=== PATIENT | male | born 1965 | race Caucasian/White ===

== ENCOUNTER 2016-05-10 08:30 | Outpatient (CLI) | payer OTHER | END 2016-05-10 08:31 | disposition home or self-care (01) | DX: G47.33 Obstructive sleep apnea (adult) (pediatric) (principal) ==

== ENCOUNTER 2016-08-23 22:48 | Outpatient (CLI) | payer OTHER | END 2016-08-23 22:49 | disposition home or self-care (01) | DX: G47.33 Obstructive sleep apnea (adult) (pediatric) (principal); Z68.33 Body mass index [BMI] 33.0-33.9, adult ==

== ENCOUNTER 2016-09-06 09:54 | Outpatient (CLI) | payer OTHER | END 2016-09-06 09:55 | disposition home or self-care (01) | DX: G47.33 Obstructive sleep apnea (adult) (pediatric) (principal) ==

== ENCOUNTER 2017-06-18 14:14 | Emergency (ER) | payer BC, OTHER ==
[2017-06-18 14:28] VITALS: BP 135/98
--- NOTE | 2017-06-18 14:40 | XRAY Report ---
EXAM: CHEST RADIOGRAPHY EXAM DATE: 06/18/2017 02:32 PM. CLINICAL HISTORY: Cough. COMPARISON: 09/18/2011. TECHNIQUE: 2 views. FINDINGS: Lungs/Pleura: No focal opacities evident. No pleural effusion. No pneumothorax. Normal volumes. Mediastinum: Heart and mediastinal contours are unremarkable. Other: None. IMPRESSION: No acute cardiopulmonary abnormality. No evidence of pneumonia. [facility] Referring Provider Line: [phone] SITE ID: [id number]
[2017-06-18] MEDS ORDERED: guaiFENesin/DEXTROMETHORPHAN 10 ML UDC PO STA (16:19)
[2017-06-18] MEDS ORDERED: ACETAMINOPHEN 325 MG TABLET PO STA (16:19)
[2017-06-18] MEDS ORDERED: BENZONATATE 100 MG CAPSULE PO STA (16:19)
--- NOTE | 2017-06-18 16:33 | ED Physician Documentation ---
History of Present Illness - Stated complaint Stated Complaint: COUGH - Chief complaint Chief Complaint: Resp - Additonal information Additional information: hx from pt 52 m chills myalgias fatigue productive cough for a week or so after travel to [place] got a flu shot this year Review of Systems Constitutional: reports: Chills, Myalgias, Fatigue. denies: Fever Nose: reports: Congestion Cardiac: reports: Chest pain / pressure (with cough) Respiratory: reports: Cough GI: denies: Abdominal Pain, Nausea, Vomiting, Diarrhea Endocrine: denies: Easy bruising / bleeding Immunocompromised: denies: Immunocompromised PD PAST MEDICAL HISTORY - Past Medical History Past Medical History: Yes Respiratory: Pneumonia Endocrine/Autoimmune: HyPOthyroidism - Past Surgical History Past Surgical History: Yes Ortho: Other HEENT: Tonsil/Adenoidectomy - Present Medications Home Medications: Ambulatory Orders Medication Instructions Recorded Confirmed Azithromycin [Zithromax] 250 mg PO DAILY #6 tablet 06/18/17 Benzonatate [Tessalon] 100 mg PO TID PRN #20 capsule 06/18/17 Fluticasone [Flonase] 1 sprays SUNI BID PRN #1 bottle 06/18/17 guaiFENesin/DEXTROMETHORPHAN 10 ml PO Q6H PRN #120 ml 06/18/17 [Robitussin Dm] - Allergies Allergies/Adverse Reactions: Allergies Allergy/AdvReac Type Severity Reaction Status Date / Time No Known Drug Allergies Allergy Verified 06/18/17 14:28 - Social History Does the pt smoke?: No Smoking Status: Never smoker Does the pt drink ETOH?: No Does the pt have substance abuse?: No - Immunizations Immunizations are current?: No Immunizations: No immun - POLST Patient has POLST: No PD ED PE NORMAL - Vitals Vital signs reviewed: Yes - General General: Other (looks miserable and ill) - HEENT HEENT: Atraumatic - Neck Neck: Supple, no meningeal sign - Cardiac Cardiac: RRR - Respiratory Respiratory: No respiratory distress, Other (ronchi L > R) - Derm Derm: Normal color - Extremities Extremities: No deformity - Neuro Neuro: Alert and oriented X 3 Results - Vitals Vitals: Vital Signs - 24 hr 06/18/17 14:20 Temperature 36.6 C Heart Rate 98 Respiratory 20 Rate Blood Pressure 135/98 H O2 Saturation 98 Oxygen O2 Source Room air - Labs Labs: Laboratory Tests 06/18/17 16:18 Influenza A (Rapid) Negative Influenza B (Rapid) Negative Influenza Types A,B Ag - - Rads (name of study) CXR Radiology: See rad report (no acute) Departure - Departure Disposition: 01 Home, Self Care Clinical Impression: Pneumonia Qualifiers: Pneumonia type: due to unspecified organism Laterality: left Lung location: unspecified part of lung Qualified Code(s): J18.9 - Pneumonia, unspecified organism Condition: Good Instructions: ED Pneumonia Adult Follow-Up: Alonso Ross MD [Primary Care Provider] - Prescriptions: Azithromycin [Zithromax] 250 mg PO DAILY #6 tablet Benzonatate [Tessalon] 100 mg PO TID PRN #20 capsule PRN Reason: to ease cough Fluticasone [Flonase] 1 sprays SUNI BID PRN #1 bottle PRN Reason: congestion guaiFENesin/DEXTROMETHORPHAN [Robitussin Dm] 10 ml PO Q6H PRN #120 ml PRN Reason: Cough Comments: The influenza swabs were negative The xray did not show pneumonia but on exam it certinly sounds like you have pneumonia in your left lung and sometimes the xray findings can lag behind the clinical findings So I recommend treating you for pneumonia anyway Forms: Activity restrictions
== END 2017-06-18 17:43 | disposition home or self-care (01) ==
LOC: ED 14:14
DX: J18.9 Pneumonia, unspecified organism (principal)
CPT/HCPCS: 71046; 87275; 87276; 99283; 99284; A9270

== ENCOUNTER 2017-10-09 04:21 | Emergency (ER) | payer BC ==
--- NOTE | 2017-10-09 04:41 | ED Physician Documentation ---
PD HPI CHEST PAIN - Stated complaint Stated Complaint: CHEST PAIN - Chief complaint Chief Complaint: Cardiac - History obtained from History obtained from: Patient - History of Present Illness Timing - onset: Enter time (00:30), Today Timing - onset during: Sleep Timing - details: Abrupt onset, Intermittant Pain level max: 6 Pain level now: 2 Quality: Pain Location: Substernal, Left chest Radiation: Other (does not radiate) Improved by: Nothing Worsened by: Palpation Associated symptoms: No: Shortness of air, Diaphoresis, Nausea, Vomiting, Feeling faint / dizzy, General Weakness, Palpitations, Cough Similar symptoms before: Has not had sx before Recently seen: Not recently seen - Additional information Additional information: awoken from sleep by left chest pain, approximately 12:30 AM, waxing and waning. denies h/o similar symptoms Review of Systems Cardiac: reports: Chest pain / pressure. denies: Palpitations, Pedal edema, Calf pain Respiratory: denies: Dyspnea, Cough GI: denies: Abdominal Pain, Nausea, Vomiting PD PAST MEDICAL HISTORY - Past Medical History Respiratory: Pneumonia Endocrine/Autoimmune: HyPOthyroidism - Past Surgical History Past Surgical History: Yes Ortho: Other HEENT: Tonsil/Adenoidectomy - Present Medications Home Medications: Ambulatory Orders Medication Instructions Recorded Confirmed Azithromycin [Zithromax] 250 mg PO DAILY #6 tablet 06/18/17 Benzonatate [Tessalon] 100 mg PO TID PRN #20 capsule 06/18/17 Fluticasone [Flonase] 1 sprays SUNI BID PRN #1 bottle 06/18/17 guaiFENesin/DEXTROMETHORPHAN 10 ml PO Q6H PRN #120 ml 06/18/17 [Robitussin Dm] Omeprazole [PriLOSEC] 20 mg PO DAILY #14 capsule 10/09/17 - Allergies Allergies/Adverse Reactions: Allergies Allergy/AdvReac Type Severity Reaction Status Date / Time No Known Drug Allergies Allergy Verified 10/09/17 04:31 - Social History Does the pt smoke?: Yes Smoking Status: Light tobacco smoker Does the pt drink ETOH?: No Does the pt have substance abuse?: No - Immunizations Immunizations are current?: No Immunizations: No immun - POLST Patient has POLST: No PD ED PE NORMAL - Vitals Vital signs reviewed: Yes - General General: Alert and oriented X 3, No acute distress, Well developed/nourished - HEENT HEENT: Moist mucous membranes - Cardiac Cardiac: RRR, No murmur, No gallop, No rub - Respiratory Respiratory: No respiratory distress, Clear bilaterally - Abdomen Abdomen: Soft, Non tender - Extremities Extremities: No edema Results - Vitals Vitals: Vital Signs - 24 hr 10/09/17 10/09/17 10/09/17 04:29 05:10 06:03 Temperature 36.1 C L Heart Rate 70 67 71 Respiratory 16 16 16 Rate Blood Pressure 155/100 H 151/100 H O2 Saturation 97 96 98 10/09/17 06:53 Temperature Heart Rate 70 Respiratory 16 Rate Blood Pressure 143/67 H O2 Saturation 95 Oxygen O2 Source Room air - EKG (time done) No standard instances Rate: Rate (enter#) (69) Rhythm: NSR [place]: Normal Intervals: Normal OK QRS: Normal Ischemia: Normal ST segments Computer interpretation: Disagree with computer (no ST elevation) - Labs Labs: Laboratory Tests 10/09/17 10/09/17 10/09/17 04:37 04:37 04:37 WBC 5.7 RBC 4.61 L Hgb 14.4 Hct 43.1 MCV 93.3 MCH 31.1 H MCHC 33.4 RDW 14.0 Plt Count 229 MPV 8.2 Neut # (Auto) 2.6 Lymph # (Auto) 2.2 [place] # (Auto) 0.7 Eos # (Auto) 0.1 Baso # (Auto) 0.1 Absolute Nucleated RBC 0.00 Nucleated RBC % 0.1 Sodium 140 Potassium 4.2 Chloride 107 Carbon Dioxide 26 Anion Gap 7.0 BUN 20 Creatinine 1.0 Estimated GFR (MDRD) 78 L Glucose 93 Calcium 9.0 Total Bilirubin 0.5 AST 29 ALT 43 Alkaline Phosphatase 56 Troponin I < 0.04 Total Protein 7.2 Albumin 3.8 Globulin 3.4 Albumin/Globulin Ratio 1.1 Lipase 33 - Rads (name of study) chest xray Radiology: Prelim report reviewed, See rad report PD MEDICAL DECISION MAKING - ED course Complexity details: reviewed results, re-evaluated patient, considered differential, d/w patient - Sepsis Event Vital Signs: Vital Signs - 24 hr 10/09/17 10/09/17 10/09/17 04:29 05:10 06:03 Temperature 36.1 C L Heart Rate 70 67 71 Respiratory 16 16 16 Rate Blood Pressure 155/100 H 151/100 H O2 Saturation 97 96 98 10/09/17 06:53 Temperature Heart Rate 70 Respiratory 16 Rate Blood Pressure 143/67 H O2 Saturation 95 Oxygen O2 Source Room air Departure - Departure Disposition: 01 Home, Self Care Clinical Impression: Chest pain Condition: Good Instructions: ED Chest Pain Atypical Unkn Cause Follow-Up: Alonso Ross MD [Primary Care Provider] - Prescriptions: Omeprazole [PriLOSEC] 20 mg PO DAILY #14 capsule Discharge Date/Time: 10/09/17 06:53
[2017-10-09 04:50] LABS: BASOPHILS # (AUTO) 0.1 10^3/uL (0.0-0.1); EOSINOPHILS # (AUTO) 0.1 10^3/uL (0.0-0.7); EOSINOPHILS % (AUTO) 2.5 %; HGB - HEMOGLOBIN 14.4 g/dL (14.0-18.0); LYMPHOCYTES # (AUTO) 2.2 10^3/uL (1.5-3.5); LYMPHOCYTES % (AUTO) 38.3 %; MEAN CORPUSCULAR HEMOGLOBIN 31.1 pg (27.0-31.0); MEAN CORPUSCULAR HGB CONC 33.4 g/dL (32.0-36.0); MEAN CORPUSCULAR VOLUME 93.3 fL (80.0-94.0); MEAN PLATELET VOLUME 8.2 fL (7.4-11.4); MONOCYTES # (AUTO) 0.7 10^3/uL (0.0-1.0); MONOCYTES % (AUTO) 11.9 %; NEUTROPHILS # (AUTO) 2.6 10^3/uL (1.5-6.6); NEUTROPHILS % (AUTO) 46.3 %; PLT - PLATELET COUNT 229 10^3/uL (130-450); RED BLOOD COUNT 4.61 10^6/uL (4.70-6.10); WHITE BLOOD COUNT 5.7 x10^3/uL (4.8-10.8)
[2017-10-09 04:56] LABS: ALBUMIN 3.8 g/dL (3.2-5.5); ALBUMIN/GLOBULIN RATIO 1.1 (1.0-2.2); BILIRUBIN,TOTAL 0.5 mg/dL (0.2-1.0); TOTAL PROTEIN 7.2 g/dL (6.7-8.2)
--- NOTE | 2017-10-09 06:43 | XRAY Report ---
Procedure Date: 10/09/2017 Accession Number: [id number] / [id number] Procedure: XR - Chest 2 View X-Ray CPT Code: 89915 FULL RESULT: EXAM: CHEST RADIOGRAPHY EXAM DATE: 10/09/2017 04:47 AM. CLINICAL HISTORY: Chest pain COMPARISON: 09/18/2011 (report not available) TECHNIQUE: 2 views. FINDINGS: Lungs/Pleura: No focal opacities evident. No pleural effusion. No pneumothorax. Normal volumes. Mediastinum: Heart and mediastinal contours are unremarkable. Other: None. IMPRESSION: Stable appearance of the chest without acute cardiopulmonary abnormality. [facility]
[2017-10-09] MEDS ORDERED: PANTOPRAZOLE 40 MG TABLET PO STA (06:48)
[2017-10-09 06:53] VITALS: BP 143/67
== END 2017-10-09 06:53 | disposition home or self-care (01) ==
LOC: ED 04:21
DX: R07.9 Chest pain, unspecified (principal); E03.9 Hypothyroidism, unspecified; F17.200 Nicotine dependence, unspecified, uncomplicated
CPT/HCPCS: 36415; 71046; 80053; 83690; 84484; 85025; 93005; 99283; 99284; A9270

== ENCOUNTER 2019-07-31 14:07 | Outpatient (CLI) | payer BC ==
--- NOTE | 2019-07-31 20:33 | XRAY Report ---
Reason: RIGHT SHOULDER PAIN Procedure Date: 07/31/2019 Accession Number: [id number] / [id number] Procedure: XR - Shoulder 3 View RT CPT Code: Final Report FULL RESULT: EXAM: RIGHT SHOULDER RADIOGRAPHY EXAM DATE: 07/31/2019 02:25 PM. CLINICAL HISTORY: RIGHT SHOULDER PAIN. COMPARISON: None. TECHNIQUE: 3 views. FINDINGS: Bones: No fracture or bone lesion identified. Joints: No dislocation. Mild arthrosis of the acromioclavicular joint. Soft tissues: Unremarkable. IMPRESSION: Mild acromioclavicular joint arthrosis. Otherwise unremarkable. [facility]
== END 2019-07-31 14:08 | disposition home or self-care (01) ==
LOC: DI 14:07
PROVIDERS: ATTEND Family Medicine
DX: M19.011 Primary osteoarthritis, right shoulder (principal)

== ENCOUNTER 2020-02-25 10:36 | Outpatient (CLI) | payer BC ==
--- NOTE | 2020-02-25 13:25 | XRAY Report ---
PROCEDURE: Lumbar Spine 2 View INDICATIONS: LOW BACK PAIN TECHNIQUE: 4 views of the lumbar spine were acquired. COMPARISON: None. FINDINGS: Bones: 5 [id number] vertebrae are present. There is normal bony alignment. No vertebral body compression fractures. No suspicious bony lesions. Soft tissues: Overlying bowel gas pattern is normal. No suspicious soft tissue calcifications. IMPRESSION: Mild degenerative disc height reduction at L5-S1. 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 No subluxation seen. Reviewed by: Gonzalo Abdi MD on 02/25/2020 1:24 PM PDT Approved by: Gonzalo Abdi MD on 02/25/2020 1:24 PM PDT Station ID: [id number]
--- NOTE | 2020-02-25 13:26 | XRAY Report ---
PROCEDURE: Thoracic Spine 2 View INDICATIONS: LOW BACK PAIN TECHNIQUE: 3 views of the thoracic spine were acquired. COMPARISON: None. FINDINGS: Bones: No fractures or dislocations. Mild degenerative disc height reduction at L5-S1. No suspiciou s bony lesions. 12 pairs of ribs are noted, and appear intact where visualized. Soft tissues: No paravertebral stripe thickening. IMPRESSION: No trauma found, no subluxation seen. Mild degenerative disc height reduction at L5-S1.. Reviewed by: Gonzalo Abdi MD on 02/25/2020 1:24 PM PDT Approved by: Gonzalo Abdi MD on 02/25/2020 1:24 PM PDT Station ID: [id number]
== END 2020-02-25 10:37 | disposition home or self-care (01) ==
LOC: DI.S 10:36
PROVIDERS: ATTEND Nurse Practitioner Family
DX: M51.37 Other intervertebral disc degeneration, lumbosacral region (principal); M47.817 Spondylosis without myelopathy or radiculopathy, lumbosacral region
CPT/HCPCS: 72070; 72100

== ENCOUNTER 2020-02-26 07:30 | Emergency (ER) | payer BC ==
[2020-02-26] MEDS ORDERED: KETOROLAC 60 MG/2 ML VIAL IM STA (07:53)
[2020-02-26] MEDS ORDERED: HYDROmorphone 1 MG/ML CARPUJECT IM STA (07:53)
--- NOTE | 2020-02-26 07:57 | ED Physician Documentation ---
PD HPI BACK PAIN - Stated complaint Stated Complaint: BACK PX - Chief complaint Chief Complaint: Back Pain - History obtained from History obtained from: Patient - History of Present Illness Timing - onset: How many weeks ago (1) Timing - duration: Weeks (1) Timing - details: Gradual onset Pain level max: 9 Pain level now: 7 Location: Lower, Right, Left Quality: Pain, Spasm, Similar to prior episodes Associated symptoms: Numbness (occasionally to the B hips). No: Fever, Weakness, Incontinent of urine, Unable to urinate, Hematuria, Incontinent of stool Improves with: Rest Worsened by: Movement Contributing factors: Other (started after doing yard work. Long history of back problems.). No: Lifting, Twisting, Trauma, Anticoagulated, Cancer, IVDA, Out of meds Recently seen: Clinic (started on flexeril and tramadol 2 days ago. Started on prednisone yesterday. Back xrays yesterday) Review of Systems Constitutional: denies: Fever, Chills Nose: denies: Rhinorrhea / runny nose, Congestion Throat: denies: Sore throat Cardiac: denies: Chest pain / pressure Respiratory: denies: Cough GI: denies: Abdominal Pain, Nausea, Vomiting, Diarrhea : denies: Dysuria, Incontinent Skin: denies: Rash Musculoskeletal: reports: Back pain. denies: Neck pain Neurologic: denies: Focal weakness PD PAST MEDICAL HISTORY - Past Medical History Past Medical History: Yes Respiratory: Pneumonia Endocrine/Autoimmune: HyPOthyroidism - Past Surgical History Past Surgical History: Yes Ortho: Other HEENT: Tonsil/Adenoidectomy - Present Medications Home Medications: Ambulatory Orders Medication Instructions Recorded Confirmed Cyclobenzaprine [Flexeril] 10 mg TID PRN 02/26/20 02/26/20 Meloxicam [Mobic] 7.5 mg PO BID PRN #20 tablet 02/26/20 Methocarbamol [Robaxin-750] 750 mg PO Q8H PRN #14 tablet 02/26/20 Oxycodone HCl/Acetaminophen 1 - 2 each PO Q6H PRN #14 tablet 02/26/20 [Percocet 5-325 mg Tablet] Prednisone 10 mg DAILY 02/26/20 02/26/20 Tramadol HCl 50 mg Q6H PRN 02/26/20 02/26/20 - Allergies Allergies/Adverse Reactions: Allergies Allergy/AdvReac Type Severity Reaction Status Date / Time No Known Drug Allergies Allergy Verified 02/26/20 07:37 - Social History Does the pt smoke?: Yes Smoking Status: Light tobacco smoker Does the pt drink ETOH?: No Does the pt have substance abuse?: No - Immunizations Immunizations are current?: No Immunizations: No immun - POLST Patient has POLST: No PD ED PE NORMAL - Vitals Vital signs reviewed: Yes - General General: Alert and oriented X 3, No acute distress - HEENT HEENT: Moist mucous membranes - Neck Neck: Supple, no meningeal sign - Cardiac Cardiac: RRR - Respiratory Respiratory: No respiratory distress - Abdomen Abdomen: Soft, Non tender, Non distended - Back Back: No spinal TTP (no midline TTP, no step off or deformity. paraspinal spasm low lumbar B. ) - Derm Derm: Warm and dry - Extremities Extremities: Other (Normal bilateral lower extremity patellar and ankle jerk reflexes. Normal great toe extension bilaterally. no saddle anesthesia) - Neuro Neuro: Alert and oriented X 3, No motor deficit, No sensory deficit - Psych Psych: Normal mood, Normal affect Results - Vitals Vitals: Vital Signs - 24 hr 02/26/20 07:35 Temperature 36.4 C L Heart Rate 87 Respiratory 14 Rate Blood Pressure 153/97 H O2 Saturation 95 Oxygen O2 Source Room air PD MEDICAL DECISION MAKING - ED course Complexity details: reviewed results, re-evaluated patient, considered differential (No cauda equina, no spinal epidural abscess, no fracture, no aortic dissection or evidence of aneursym rupture), d/w patient, d/w family ED course: 54-year-old male presents to the emergency department with low back pain after doing yard work. Has paraspinal spasm on exam. No evidence of cauda equina, epidural abscess. Pain well controlled in the emergency department. We will have him continue the prednisone, but change the Flexeril and tramadol to oxycodone and Robaxin. We will have him continue gentle stretching at home. X- rays were reviewed from yesterday with no acute findings. Patient and family counseled regarding signs and symptoms for which I believe and urgent re- evaluation would be necessary. Patient with good understanding of and agreement to plan and is comfortable going home at this time This document was made in part using voice recognition software. While efforts are made to proofread this document, sound alike and grammatical errors may occur. Departure - Departure Clinical Impression: Back spasm Condition: Good Instructions: ED Spasm Back No Trauma Follow-Up: your,doctor in 1 week [Other] Prescriptions: Meloxicam [Mobic] 7.5 mg PO BID PRN #20 tablet PRN Reason: Pain Oxycodone HCl/Acetaminophen [Percocet 5-325 mg Tablet] 1 - 2 each PO Q6H PRN #14 tablet PRN Reason: pain Methocarbamol [Robaxin-750] 750 mg PO Q8H PRN #14 tablet PRN Reason: back spasm Comments: Use the medications as prescribed. Stop the Flexeril and tramadol. Do not drive or operate heavy machinery while taking the Percocet or Robaxin. This should improve over the next week. You need to continue gentle stretching at home as this will help to relieve the spasm. Do not drink alcohol or drive while on narcotic pain medicine. Note that many narcotic pain relievers also contain tylenol/acetaminophen. Please ensure that your total dose of acetaminophen from all sources does not exceed 3 grams (3000mg) per day. You may constipated on this medication, take a stool softener such as "Colace" twice a day while you are on it. Also recommend a [id number]-cyuypzx laxative such as senna or MiraLAX any day that you do not have a bowel movement. If you received narcotic pain medication in the emergency department, do not drive or operate machinery for the next 24 hours.
[2020-02-26 08:32] VITALS: BP 169/111
== END 2020-02-26 08:32 | disposition home or self-care (01) ==
LOC: ED 07:30
DX: M62.830 Muscle spasm of back (principal); F17.200 Nicotine dependence, unspecified, uncomplicated
CPT/HCPCS: 96372; 99283; 99284; J1170